=== PATIENT | female | born 1980 | race Caucasian/White ===

== ENCOUNTER 2017-06-21 11:28 | Emergency (ER) | payer MEDICAID ==
[~2017-06-21] VITALS: Ht 170.2 cm; Wt 57.2 kg
[~2017-06-21 11:28] MED LIST: CLON-527 PO; ONDA8TAB9 PO; TOP100T PO
[2017-06-21 11:37] VITALS: BP 125/83
[2017-06-21] MEDS ORDERED: IBUP-1984 PO (14:32)
== END 2017-06-21 14:48 | disposition home or self-care (01) ==
LOC: ER 11:29
DX: S40.021A Contusion of right upper arm, initial encounter (principal); F15.10 Other stimulant abuse, uncomplicated; W23.0XXA Caught, crushed, jammed, or pinched between moving objects, initial encounter; Y93.89 Activity, other specified; Y92.89 Other specified places as the place of occurrence of the external cause; Y99.8 Other external cause status
CPT/HCPCS: 73060; 73080; 73090; 99284

== ENCOUNTER 2017-08-16 23:50 | Emergency (ER) | payer MEDICAID, OTHER ==
[~2017-08-16] VITALS: Ht 170.2 cm; Wt 59.0 kg
[~2017-08-16 23:50] MED LIST changes: +ACET-812 PO; +IBUP-1984 PO; +TRAM50TA2 PO
[2017-08-17 00:29] LABS: CLARITY,URINE Clear (Clear); COLOR,URINE Yellow (Yellow); GLUCOSE, URINE Negative (Neg); KETONES,URINE Negative (Neg); LEUKOCYTE ESTERASE ,URINE Moderate (Neg); NITRITES, URINE Negative (Neg); OCCULT BLOOD,URINE Negative (Neg); PROTEIN,URINE Negative (Neg); UROBILINOGEN,URINE 0.2 E.U/dL (0.2-1.0)
[2017-08-17 00:30] LABS: URINE HCG NEGATIVE (NEG)
[2017-08-17 00:32] LABS: UA COLLECTION TYPE CLN CATCH MIDSTREAM
[2017-08-17 00:37] LABS: BACTERIA,URINE FEW /HPF (Neg); MUCUS STRANDS NONE SEEN /LPF (Neg); RBC,URINE 0-2 /HPF (0-2); SQUAMOUS EPITHELIAL CELL,UR MANY /LPF (FEW); WBC,URINE 30-50 /HPF (0-4)
[2017-08-17 01:00] VITALS: BP 132/71
== END 2017-08-17 01:45 | disposition left against medical advice (07) ==
LOC: ER 23:50
DX: R07.81 Pleurodynia (principal); Z53.21 Procedure and treatment not carried out due to patient leaving prior to being seen by health care provider
CPT/HCPCS: 81001; 81025; 99281

== ENCOUNTER 2018-05-20 21:34 | Emergency (ER) | payer MEDICAID, OTHER ==
[~2018-05-20] VITALS: Ht 170.2 cm; Wt 67.0 kg
[~2018-05-20 21:34] MED LIST changes: -IBUP-1984 PO; -TRAM50TA2 PO
[2018-05-20 21:44] VITALS: BP 108/67
[2018-05-21] MEDS ORDERED: ROBCFL PO (23:20)
[2018-05-21] MEDS ORDERED: BENZ-16 PO (23:20)
== END 2018-05-21 01:29 | disposition left against medical advice (07) ==
LOC: ER 21:35
DX: J00 Acute nasopharyngitis [common cold] (principal); R05 Cough; R09.89 Other specified symptoms and signs involving the circulatory and respiratory systems; Z53.21 Procedure and treatment not carried out due to patient leaving prior to being seen by health care provider

== ENCOUNTER 2018-05-21 20:33 | Emergency (ER) | payer MEDICAID ==
[~2018-05-21] VITALS: Ht 170.2 cm; Wt 56.8 kg
[2018-05-21 20:37] VITALS: BP 104/73
[2018-05-21] MEDS ORDERED: ROBCFL PO (23:20)
[2018-05-21] MEDS ORDERED: BENZ-16 PO (23:20)
== END 2018-05-21 23:39 | disposition home or self-care (01) ==
LOC: ER 20:34
DX: R05 Cough (principal); R07.9 Chest pain, unspecified; J02.9 Acute pharyngitis, unspecified; F15.90 Other stimulant use, unspecified, uncomplicated; F11.90 Opioid use, unspecified, uncomplicated; Z88.8 Allergy status to other drugs, medicaments and biological substances; Z79.899 Other long term (current) drug therapy
CPT/HCPCS: 71046; 99283

== ENCOUNTER 2019-01-26 23:55 | Emergency (ER) | payer MEDICAID ==
[~2019-01-26] VITALS: Ht 170.2 cm; Wt 61.0 kg
[~2019-01-26 23:55] MED LIST changes: +BENZ-16 PO
[2019-01-27] VITALS: BP 116/80
[2019-01-27 00:37] LABS: URINE HCG NEGATIVE (NEG)
[2019-01-27 00:39] LABS: CLARITY,URINE CLOUDY (Clear); COLOR,URINE YELLOW (Yellow); GLUCOSE, URINE NEGATIVE (Neg); KETONES,URINE NEGATIVE (Neg); LEUKOCYTE ESTERASE ,URINE SMALL (Neg); NITRITES, URINE NEGATIVE (Neg); OCCULT BLOOD,URINE MODERATE (Neg); PH,URINE 5.5 (4.8-8.0); PROTEIN,URINE 100 mg/dl (Neg); UROBILINOGEN,URINE 0.2 E.U/dL (0.2-1.0)
[2019-01-27 00:40] LABS: UA COLLECTION TYPE CLN CATCH MIDSTREAM
[2019-01-27 00:49] LABS: BACTERIA,URINE FEW /HPF (Neg); MUCUS STRANDS FEW /LPF (Neg); SQUAMOUS EPITHELIAL CELL,UR FEW /LPF (FEW); WBC,URINE TNTC /HPF (0-4)
== END 2019-01-27 02:00 | disposition left against medical advice (07) ==
LOC: ER 23:55
DX: R30.9 Painful micturition, unspecified (principal); Z53.21 Procedure and treatment not carried out due to patient leaving prior to being seen by health care provider
CPT/HCPCS: 36415; 81001; 81025; 87088; 87491

== ENCOUNTER 2019-04-14 14:45 | Emergency (ER) | payer MEDICAID, OTHER ==
[~2019-04-14] VITALS: Ht 170.2 cm; Wt 53.0 kg
[2019-04-14 14:54] VITALS: BP 113/79
[2019-04-14] MEDS ORDERED: ERYT1OIN6 EACHEYE (15:53)
== END 2019-04-14 16:30 | disposition home or self-care (01) ==
LOC: ER 14:45
DX: H10.89 Other conjunctivitis (principal); J06.9 Acute upper respiratory infection, unspecified; F15.90 Other stimulant use, unspecified, uncomplicated; F11.90 Opioid use, unspecified, uncomplicated; Z98.890 Other specified postprocedural states; Z86.14 Personal history of Methicillin resistant Staphylococcus aureus infection; Z88.1 Allergy status to other antibiotic agents; Z79.899 Other long term (current) drug therapy
CPT/HCPCS: 99283

== ENCOUNTER 2019-06-07 21:53 | Emergency (ER) | payer MEDICAID, OTHER ==
[~2019-06-07] VITALS: Ht 170.2 cm; Wt 63.6 kg
[2019-06-07 22:05] VITALS: BP 105/72
[2019-06-07] MEDS ORDERED: HYDROcodone/acetaminophen 5mg/325mg tablet PO ONE (23:05)
[2019-06-07] MEDS ORDERED: ondansetron 4mg rapidly disintigrating tab PO ONE (23:05)
[2019-06-07] MEDS ORDERED: IBUP-1984 PO (23:06)
[2019-06-07] MEDS ORDERED: PENI500T2 PO ×2 (23:06→23:28)
== END 2019-06-07 23:45 | disposition home or self-care (01) ==
LOC: ER 21:55
DX: K04.7 Periapical abscess without sinus (principal); K02.9 Dental caries, unspecified; F15.90 Other stimulant use, unspecified, uncomplicated; F11.90 Opioid use, unspecified, uncomplicated; Z98.890 Other specified postprocedural states; Z86.14 Personal history of Methicillin resistant Staphylococcus aureus infection; Z88.1 Allergy status to other antibiotic agents
CPT/HCPCS: 99283

== ENCOUNTER 2019-07-19 00:41 | Emergency (ER) | payer OTHER ==
[~2019-07-19] VITALS: Ht 170.2 cm; Wt 62.7 kg
[~2019-07-19 00:41] MED LIST changes: +PENI500T2 PO
[2019-07-19] MEDS ORDERED: sulfamethoxazole/trimethoprim DS (800/160mg) tablet PO ONE (01:10)
[2019-07-19] MEDS ORDERED: LIDOcaine 1% W/epiNEPHrine 1:100,000 20ml vial SQ ONE (01:10)
[2019-07-19] MEDS ORDERED: morphine 4 MG/ML inj SYRINge IM ONE (01:10)
[2019-07-19] MEDS ORDERED: IBUP-1986 PO (01:22)
[2019-07-19] MEDS ORDERED: SULF1TAB49 PO (01:22)
[2019-07-19] MEDS ORDERED: HYDROcodone/acetaminophen 10/325mg tab PO ONE (01:45)
[2019-07-19] MEDS ORDERED: ondansetron 4mg rapidly disintigrating tab PO ONE (01:45)
[2019-07-19 02:35] VITALS: BP 92/63
== END 2019-07-19 02:37 | disposition home or self-care (01) ==
LOC: ER 00:42
DX: L02.413 Cutaneous abscess of right upper limb (principal); F15.90 Other stimulant use, unspecified, uncomplicated; F11.90 Opioid use, unspecified, uncomplicated; Z98.890 Other specified postprocedural states; Z86.69 Personal history of other diseases of the nervous system and sense organs; Z86.14 Personal history of Methicillin resistant Staphylococcus aureus infection; Z88.8 Allergy status to other drugs, medicaments and biological substances; Z79.899 Other long term (current) drug therapy
CPT/HCPCS: 10060; 96372; 99284; J2270

== ENCOUNTER 2020-02-02 21:51 | Emergency (ER) | payer MEDICAID ==
[~2020-02-02] VITALS: Ht 170.2 cm; Wt 63.6 kg
[~2020-02-02 21:51] MED LIST changes: +IBUP-1986 PO
[2020-02-02 22:00] VITALS: BP 151/94
[2020-02-02] MEDS ORDERED: cephalexin 500mg capsule PO ONE (22:25)
[2020-02-02] MEDS ORDERED: TETanus/Pertussis (Acell)/Diphther VAC/PF (Tdap-Adult) 0.5ml syringe IMVAC ONE (22:25)
[2020-02-02] MEDS ORDERED: ketorolac tromethamine 15mg/ml inj. IM ONE (22:25)
[2020-02-02] MEDS ORDERED: sulfamethoxazole/trimethoprim DS (800/160mg) tablet PO ONE (22:25)
[2020-02-02] MEDS ORDERED: CEPH500C5 PO (22:28)
[2020-02-02] MEDS ORDERED: MUPI22OI30 TOP (22:28)
[2020-02-02] MEDS ORDERED: SULF1TAB49 PO (22:28)
[2020-02-02] MEDS ORDERED: NALO4SPR BOTHNARES (22:29)
[2020-02-02] MEDS ORDERED: ketorolac trometh. 30mg/ml inj. IM ONE (22:40)
[2020-02-02] MEDS ORDERED: ondansetron 4mg rapidly disintigrating tab PO ONE (22:55)
== END 2020-02-02 23:10 | disposition home or self-care (01) ==
LOC: ER 21:52
DX: L03.116 Cellulitis of left lower limb (principal); L02.416 Cutaneous abscess of left lower limb; F11.10 Opioid abuse, uncomplicated; R22.43 Localized swelling, mass and lump, lower limb, bilateral; F15.90 Other stimulant use, unspecified, uncomplicated; Z86.69 Personal history of other diseases of the nervous system and sense organs; Z86.14 Personal history of Methicillin resistant Staphylococcus aureus infection; Z98.890 Other specified postprocedural states; Z88.8 Allergy status to other drugs, medicaments and biological substances; Z79.2 Long term (current) use of antibiotics; Z79.899 Other long term (current) drug therapy
CPT/HCPCS: 90471; 90715; 96372; 99284; J1885

== ENCOUNTER 2020-03-23 16:33 | Emergency (ER) | payer MEDICAID ==
[~2020-03-23] VITALS: Ht 172.7 cm; Wt 90.0 kg
[~2020-03-23 16:33] MED LIST changes: +NALO4SPR BOTHNARES
[2020-03-23 16:38] VITALS: BP 113/73
--- NOTE | 2020-03-23 17:32 | NUR ---
Left before being seen, was seen leaving facility on skateboard. Not necessary to call back patient per Dr Marvin.
== END 2020-03-23 17:45 | disposition left against medical advice (07) ==
LOC: ER 16:34
DX: R10.9 Unspecified abdominal pain (principal); Z53.21 Procedure and treatment not carried out due to patient leaving prior to being seen by health care provider

== ENCOUNTER 2020-04-05 20:31 | Emergency (ER) | payer MEDICAID, OTHER ==
[~2020-04-05] VITALS: Ht 170.2 cm; Wt 65.9 kg
[2020-04-05 20:37] VITALS: BP 107/73
== END 2020-04-05 22:51 | disposition home or self-care (01) ==
LOC: ER 20:31
DX: R05 Cough (principal); R09.81 Nasal congestion; R43.9 Unspecified disturbances of smell and taste; F15.10 Other stimulant abuse, uncomplicated; F11.10 Opioid abuse, uncomplicated; Z20.828 Contact with and (suspected) exposure to other viral communicable diseases; Z88.8 Allergy status to other drugs, medicaments and biological substances; Z79.899 Other long term (current) drug therapy; Z98.890 Other specified postprocedural states
CPT/HCPCS: 36415; 87635; 99283; C9803

== ENCOUNTER 2020-12-28 16:04 | Emergency (ER) | payer MEDICAID, OTHER ==
[~2020-12-28] VITALS: Ht 231.1 cm; Wt 165.0 kg
[~2020-12-28 16:04] MED LIST changes: +OFLO5DRO5 LEFT EAR
[2020-12-28 16:14] VITALS: BP 113/66
== END 2020-12-28 18:32 | disposition home or self-care (01) ==
LOC: ER 16:05
DX: M25.561 Pain in right knee (principal); F17.200 Nicotine dependence, unspecified, uncomplicated; F15.90 Other stimulant use, unspecified, uncomplicated; F11.90 Opioid use, unspecified, uncomplicated; Z88.8 Allergy status to other drugs, medicaments and biological substances; Z79.899 Other long term (current) drug therapy
CPT/HCPCS: 29505; 73564; 99283